=== PATIENT | male | born 1950 | race Native Hawaiian/Other Pacific Islander ===

== ENCOUNTER 2021-07-11 08:43 | Emergency (ER) | payer BC ==
[~2021-07-11] VITALS: Ht 175.3 cm; Wt 98.9 kg
[2021-07-11 08:53] VITALS: TEMP 97.4
[2021-07-11 09:41] LABS: PLATELET COUNT 191 K/uL (142-355)
[2021-07-11 09:48] LABS: POTASSIUM 4.9 mmol/L (3.6-5.2)
[2021-07-11 11:50] VITALS: BP 140/78
== END 2021-07-11 11:50 | disposition home or self-care (01) ==
LOC: ED 08:43
PROVIDERS: Emergency Medicine Emergency Medical Services
DX: S20.211A Contusion of right front wall of thorax, initial encounter (principal); S39.012A Strain of muscle, fascia and tendon of lower back, initial encounter; W10.8XXA Fall (on) (from) other stairs and steps, initial encounter; Y92.89 Other specified places as the place of occurrence of the external cause
CPT/HCPCS: 36415; 80053; 81000; 82150; 83690; 85027; 96360; 96374; 96375; 99284; J2270; J2405; Q9963

== ENCOUNTER 2022-06-06 15:18 | Outpatient (CLI) | payer BC | END 2022-06-06 19:04 | disposition home or self-care (01) | LOC: CT 15:18 | PROVIDERS: ATTEND Internal Medicine Critical Care Medicine | DX: R91.1 Solitary pulmonary nodule (principal) ==

== ENCOUNTER 2023-06-08 09:26 | Outpatient (CLI) | payer BC | END 2023-06-08 18:58 | disposition home or self-care (01) | LOC: CT 09:26 | PROVIDERS: ATTEND Nurse Practitioner Family | DX: J44.9 Chronic obstructive pulmonary disease, unspecified (principal); R91.1 Solitary pulmonary nodule ==